=== PATIENT | male | born 1960 | race Caucasian/White ===

== ENCOUNTER 2019-10-03 15:25 | Inpatient (IN) ==
[2019-10-03] MEDS ORDERED: NS 1,000 ML IV ONE (15:51)
[2019-10-03 16:11] LABS: BASO# 0.04 X1000 (0.0-0.2); BASO% 0.6 % (0.0-0.8); EOS# 0.22 X1000 (0.0-0.7); EOS% 3.1 % (0.0-10.0); HEMATOCRIT 47.7 % (42.0-52.0); HEMOGLOBIN 15.5 g/dL (14.0-18.0); IMM GRAN# 0.02 X1000 (0.0-0.04); IMM GRAN% 0.3 % (0.0-0.5); LYMPH# 1.67 X1000 (1.2-3.4); LYMPH% 23.5 % (20.5-51.1); MCH 30.2 PG (27-31); MCHC 32.5 g/dL (33-37); MCV 92.8 FL (81-99); MONO# 0.75 X1000 (0.11-0.59); MONO% 10.6 % (1.7-9.3); MPV 9.4 FL (7.4-10.4); NEUT% 61.9 % (42.2-75.2); PLT 282 X1000 (130-400); RBC 5.14 XMIL (4.7-6.1); RDW 13.9 % (11.5-14.5)
[2019-10-03 16:24] LABS: ALBUMIN 3.9 g/dL (3.5-5.0); CALCIUM 8.6 mg/dL (8.8-10.2); POTASSIUM 3.6 mmol/L (3.5-5.1); TOTAL BILIRUBIN 0.7 mg/dL (0.20-1.00); TOTAL PROTEIN 6.6 g/dL (6.3-8.3)
[2019-10-03 16:32] LABS: URINE SOURCE CATH
[2019-10-03 16:42] LABS: URINE WBC >40 /HPF (<10)
[2019-10-03 16:43] LABS: BILIRUBIN URINE SMALL (NEGATIVE); BLOOD URINE NEGATIVE (NEGATIVE); COLOR STRAW; GLUCOSE URINE NEGATIVE (NEGATIVE); KETONE URINE NEGATIVE (NEGATIVE); PH URINE 5.5; SP GRAVITY URINE 1.023; TURBIDITY URINE HAZY (CLEAR); UR EPITHELIAL CELLS >10 /HPF (<10); URINE BACTERIA 1+ /HPF; URINE RBC <10 /HPF (<10)
[2019-10-03 16:44] LABS: LEUKOCYTES URINE NEGATIVE (NEGATIVE); NITRITE URINE NEGATIVE (NEGATIVE); PROTEIN URINE TRACE mg/dL (NEGATIVE); URINE YEAST PRESENT; UROBILINOGEN URINE 2 mg/dL (NORMAL)
[2019-10-03 16:46] LABS: UR CREAT RANDOM 542.6 mg/dL (14-26)
[2019-10-03] MEDS ORDERED: ZOFRAN IV PRN (17:27)
[2019-10-03] MEDS ORDERED: TYLENOL PO PRN (17:27)
[2019-10-03] MEDS: NS 1,000 ML IV SCH (18:34)
--- NOTE | 2019-10-03 18:35 | EKG Report ---
Test Performed on : 10/03/2019 6:00:36 PM Test Reason : GAIL Blood Pressure : / mmHG Vent. Rate : 078 BPM Atrial Rate : 078 BPM P-R Int : 214 ms QRS Dur : 108 ms QT Int : 416 ms P-R-T Axes : 042 000 019 degrees QTc Int : 474 ms Sinus rhythm. with 1st degree AV block. Low voltage QRS Nonspecific T wave abnormality Prolonged QT Abnormal ECG When compared with ECG of 26-SEP-2019 22:49, (Unconfirmed) GA interval has increased QRS duration has increased Unconfirmed Result
--- NOTE | 2019-10-03 18:50 | PROVIDER DOCUMENTATION ---
This chart was entered by Brooke Meza Scribe, acting as scribe for Rea Gutiérrez CRNP. HPI-General Adult - General Chief Complaint: Abnormal Lab[s] Stated Complaint: ABNORMAL LABS Time Seen by Provider: 10/03/19 15:48 Source: patient, family (sister), other (caregiver from [facility]) Unable to obtain history due to:: other (pt is poor historian) Allergies/Adverse Reactions: Patient Allergies Allergy/AdvReac Type Severity Reaction Status Date / Time ziprasidone [From [facility], [place]] AdvReac Severe Psychosis, Verified 05/14/17 19:26 "see x-rays in your eyes" Home Medications: Home Medication List Medication Instructions Recorded Confirmed Last Taken Type Albuterol Sulfate [Ventolin Hfa] 1 - 2 puff INH Q4H PRN PRN 09/27/19 09/27/19 Unknown History Amlodipine Besylate 1 tab PO DAILY 09/27/19 09/27/19 Unknown History Ergocalciferol (Vitamin D2) 1 cap PO DIRECTED 09/27/19 09/27/19 Unknown Hist ory [Vitamin D2] Fexofenadine [Shaila] 1 tab PO DAILY 09/27/19 09/27/19 Unknown History Fluticasone Propionate 2 spray INTRANASAL DAILY 09/27/19 09/27/19 Unknown History Furosemide 1 tab PO DAILY 09/27/19 09/27/19 Unknown History Losartan/Hctz [Hyzaar 100/12.5 mg 1 tab PO DAILY 09/27/19 09/27/19 Unknown History Tab] Meloxicam 1 tab PO DAILY 09/27/19 09/27/19 Unknown History Metformin HCl 1 tab PO BID 09/27/19 09/27/19 Unknown History Montelukast Sodium 1 tab PO DAILY 09/27/19 09/27/19 Unknown History Saxagliptin [Onglyza] 1 tab PO DAILY 09/27/19 09/27/19 Unknown History - History of Present Illness -Gen Adult Nature of Presenting Problems: 59 yowm presents to the ed via ems with c/o abnormal kidney lab results. pt had x2 bags of fluid [employer] in ed but continues to state "I don't feel good" pt is currently staying at [facility] due to SI and paranoia and believing people are out to kill him. per sister at bedside pt has not been eating well or drinking well due to believing he will be poisoned. pt sts "I feel contaminated" and "I feel like I've walked my last mile" Location of Pain/Injury: reports: other (pt sts "I just feel bad") Quality of Pain: reports: none Severity: reports: moderate Onset/Duration: reports: unsure Timing: reports: still present Context/Activities at Onset: reports: light activity Modifying Factors: improves with: nothing Associated Symptoms: reports: malaise. denies: chest pain, fever/chills, nausea, shortness of breath, vomiting Similar Symptoms Previously?: No Recently seen or treated by another doctor?: No Review of Systems - Adult - REVIEW OF SYSTEMS - ADULT Constitutional: denies: chills, fever Eyes: reports: no symptoms reported Ears, Nose, Mouth & Throat: reports: no symptoms reported Cardiovascular: denies: chest pain, palpitations Respiratory: denies: cough, shortness of breath, wheezing Gastrointestinal: denies: abdominal pain, diarrhea, vomiting Genitourinary: reports: no symptoms reported Musculoskeletal: reports: no symptoms reported Integumentary: reports: no symptoms reported Neurological: denies: dizziness/vertigo, headache/migraines Psychiatric: reports: see HPI, other (paranoid with si) Endocrine: reports: no symptoms reported Hematologic/Lymphatic: reports: no symptoms reported Allergic/Immunologic: reports: no symptoms reported All Other Systems: Reviewed and Negative Past History - Adult - PAST MEDICAL HISTORY-ADULT Review of Records: reports: Old Records Reviewed, Nursing Assessment Review, Medications Reviewed, Social history reviewed & non-contributory. Major Childhood Illnesses: reports: denies history Cardiovascular: reports: HTN Respiratory: reports: denies history Gastrointestinal: reports: GERD Genitourinary: reports: denies history Musculoskeletal: reports: denies history Neurological: reports: denies history Psychiatric: reports: depression, psychiatric problems, schizophrenia, other (paranoia) Endocrine/Immune: reports: Diabetes Diabetes Type: Type 2 Other Conditions: reports: denies history - PRIOR SURGERIES/PROCEDURES Surgical/Procedure History: reports: appendectomy - IMMUNIZATION STATUS Childhood Immunizations: See Nurse Assessment Flu Vaccine: See Nurse Assessment - FAMILY HISTORY Family History: reviewed, not pertinent - SOCIAL HISTORY Smoking: denies Substance Use: denies Living Situation: other ([facility]) Physical Exam-General - PHYSICAL EXAM-ADULT Initial Vital Signs Reviewed: Yes (noted BP-90/55 o2-90% RA) - CONSTITUTIONAL General Appearance: appears well, alert, no apparent distress, obese - EYES Eyes: PERRL/EOMI, pink conjunctivae - HEAD, EARS, NOSE, MOUTH & THROAT HENMT: negative: moist mucous membranes (dry oral with red tonue) - NECK Neck: full range of motion, normal inspection - RESPIRATORY Respiratory: chest non-tender, lungs clear, normal breath sounds - CARDIOVASCULAR Cardiovascular: normal peripheral pulses, regular rate, rhythm - CHEST (BREASTS) Chest/Breast: deferred - GASTROINTESTINAL (ABDOMEN) Abdominal Exam: normal bowel sounds, non tender, soft - GENITOURINARY Male Genitalia: deferred Rectal Exam: deferred Hemoccult Exam: deferred - LYMPHATIC Lymphatic: no adenopathy - MUSCULOSKELETAL Back Exam: no CVA tenderness, no vertebral tenderness Extremity: normal range of motion, non-tender, normal inspection - SKIN Integumentary: normal color, normal turgor, warm/dry - NEUROLOGIC Neurologic: grossly normal - PSYCHIATRIC Psych/Mental Status: paranoid (pt believes people are trying to kill him/on exam he is calm/sts "Hillary walked my last mile") Progress - PLAN OF CARE/RESULTS Progress/Plan/Lab Results: Vital Signs - 8 hr 10/03/19 15:19 Temperature 98.1 F Pulse Rate 85 Respiratory Rate 16 Blood Pressure 90/55 O2 Sat by Pulse Oximetry 90 L Result Diagrams: 10/03/19 16:00 10/03/19 16:00 - EKG 1 Time of EKG reading by physician:: 18:00 EKG Read and Signed by:: Richard Davila EKG Interpretation (*Must complete 3 of following elements*): Abnormal Rate: 78 Rhythm: sinus rhythm with 1st degree av block [place]: normal QRS: other (low voltage qrs) MT Interval: normal ST Wave: normal Comments: nonspecific T wave abnormality/prolonged QT - CONSULTS/PCP/HOSPITALIST Notification #1 *Consult/PCP/Hospitalist*: Dr. Duncan Time Discussed: 16:47 Consult Disposition: Admit Departure - Departure Date of Disposition Decision: 10/03/19 Time of Disposition Decision: 16:48 DIAGNOSIS: GAIL (acute kidney injury), Hypotension, Dehydration Disposition: ADMITTED INPATIENT 09 Certified Medical Emergency: Emergent Condition: Fair - Critical Care Note This patient required my direct & personal management of CC.: No Attestation - Physician/ MADDIE Attestation Patient care was provided by Advanced Practice Provider:: Yes Advanced Practice Provider documentation review:: The Mid-level provider documentation, treatment plan and medical decision making was reviewed by the physician who agrees with all treatment and medical decision making by the MLP. The physician spent face to face time with patient:: No Advanced Practice Provider documentation review:: Supervising physician onsite and consulted in the evaluation and care of this patient. The physician did not have a face to face encounter with the patient. This chart was documented by the indicated scribe, (Brooke Meza Scribe) and accurately reflects the services I performed and decisions made by me, Rea Gutiérrez CRNP, as attested by the provider's signature.
[2019-10-04] MEDS: NS 1,000 ML IV SCH ×4 (01:04→23:20)
[2019-10-04 06:21] LABS: HEMATOCRIT 43.9 % (42.0-52.0); HEMOGLOBIN 14.1 g/dL (14.0-18.0); MCH 29.8 PG (27-31); MCHC 32.1 g/dL (33-37); MCV 92.8 FL (81-99); MPV 9.3 FL (7.4-10.4); RBC 4.73 XMIL (4.7-6.1); RDW 13.6 % (11.5-14.5); WBC 7.95 X1000 (4.8-10.8)
[2019-10-04 06:36] LABS: ALBUMIN 3.6 g/dL (3.5-5.0); CALCIUM 8.3 mg/dL (8.8-10.2); CREATININE 2.3 mg/dL (0.7-1.2); MAGNESIUM 1.7 mg/dL (1.5-2.7); POTASSIUM 3.1 mmol/L (3.5-5.1); TOTAL BILIRUBIN 0.5 mg/dL (0.20-1.00); TOTAL PROTEIN 5.9 g/dL (6.3-8.3)
--- NOTE | 2019-10-04 08:10 | HISTORY AND PHYSICAL ---
CHIEF COMPLAINT: Abnormal labs. HISTORY OF PRESENT ILLNESS: The patient is a 67-year-old male who presented to the emergency department after having been found to have elevated serum creatinine at [facility]. He has been at [place] and has not been drinking. States that he feels contaminated. Feels like he has walked his last mile. Notes that people are out to kill him and that is the reason he is not eating or drinking. The patient is somewhat delusional. He also is confused on time. He is telling me of an event where he fell in the past and arguing with his sister that had just happened whereas the sister notes this happened 2 years ago. When asked why he is not drinking, he states because he does not want to. ALLERGIES: Katia causes psychosis; says he can "see x-rays in your eyes". MEDICATIONS: 1. Albuterol. 2. Amlodipine. 3. Vitamin D. 4. Shaila. 5. Hyzaar 100/12.5 6. [*] 7. Metformin. 8. Onglyza. PAST MEDICAL HISTORY: 1. Hypertension. 2. Hyperlipidemia. 3. Reflux [*]. REVIEW OF SYSTEMS: As noted above. Denies any fevers, chills, [*]. States that he feels bad. He did states that he has been contaminated and does not know how to decontaminate. Otherwise, denies chest pain, palpitations. FAMILY HISTORY: Noncontributory. SOCIAL HISTORY: Does not smoke or drink [*][facility]. PHYSICAL EXAMINATION: VITAL SIGNS: Temperature 98 degrees, pulse 85, respiratory rate 18, BP 92/55, saturating 100% on room air. GENERAL: The patient is awake, alert. He is lying in the bed. He is in no respiratory distress. HEENT: Normocephalic. NECK: Supple. CV: Regular rate. CHEST: Clear, nonlabored. ABDOMEN: Soft, obese, and nondistended. EXTREMITIES: Moves all extremities. NEUROLOGIC: He has no focal changes, although he is disoriented to time, and thinks that people are trying to kill him. He is paranoid. He is calm on exam. ASSESSMENT: 1. [*]around 1.5, currently 4.0. It is likely due to volume depletion, although he is taking Mobic, metformin, and hydrochlorothiazide. 2. Hypotension. 3. Dehydration. 4. Paranoid schizophrenia. 5. Diabetes. PLAN: We will admit patient to the hospital. We will follow. He is placed on intravenous fluids. Further orders as needed. cc: Toro Manning MD
[2019-10-04] MEDS ORDERED: KLOR-CON PO ONE (09:10)
--- NOTE | 2019-10-04 23:21 | PROGRESS NOTE ---
DATE: 10/04/2019 SUBJECTIVE: Patient has no new complaints. PHYSICAL EXAMINATION: Vital Signs: Reviewed. Temperature 98 degrees, pulse 80, BP 151/82. General: He is awake, alert. HEENT: Normocephalic. Neck: Supple. Cardiovascular: Regular rate. Chest: Clear. Abdomen: Soft, obese. Extremities: Moves all extremities. Neurologic: No changes. ASSESSMENT: 1. Acute renal failure, improved. Creatinine was 4.0 on admit, currently 2.3 with baseline of 1.2. 2. Hypokalemia, replaced. 3. Paranoid schizophrenia causing him to not drink. 4. Diabetes. PLAN: We will continue patient in the hospital. Continue to follow. Continue fluids today. Recheck his labs. Replace potassium. cc: Toro Manning MD
[2019-10-05 05:50] LABS: HEMATOCRIT 43.6 % (42.0-52.0); HEMOGLOBIN 13.9 g/dL (14.0-18.0); MCH 29.8 PG (27-31); MCHC 31.9 g/dL (33-37); MCV 93.6 FL (81-99); MPV 9.5 FL (7.4-10.4); RBC 4.66 XMIL (4.7-6.1); RDW 13.7 % (11.5-14.5); WBC 4.53 X1000 (4.8-10.8)
[2019-10-05 06:26] LABS: AGAP 11; ALBUMIN 3.4 g/dL (3.5-5.0); ALKALINE PHOSPHATASE 72 U/L (32-122); BUN 13 mg/dL (8-22); CALCIUM 8.3 mg/dL (8.8-10.2); CHLORIDE 110 mmol/L (98-107); COSMO 289; CREATININE 0.9 mg/dL (0.7-1.2); ESTIMATED GFR > 60; GLUCOSE 94 mg/dL (70-104); GOT 19 U/L (10-34); GPT 29 U/L (10-44); MAGNESIUM 1.4 mg/dL (1.5-2.7); POTASSIUM 3.5 mmol/L (3.5-5.1); SODIUM 145 mmol/L (136-145); TCO2 24 mmol/L (25-35); TOTAL PROTEIN 5.6 g/dL (6.3-8.3)
[2019-10-05] MEDS: NS 1,000 ML IV SCH (06:36)
[2019-10-05] MEDS ORDERED: MAGNESIUM SULFATE 2 GM/S.W.I. 2 GM/50 ML IVPB IV ONE (08:28)
[2019-10-05] MEDS ORDERED: CYMBALTA PO SCH ×2 (09:00→21:00)
[2019-10-05] MEDS ORDERED: NORVASC PO SCH (09:00)
[2019-10-05] MEDS ORDERED: KLOR-CON PO SCH (09:00)
[2019-10-05] MEDS ORDERED: VITAMIN D PO SCH (09:00)
[2019-10-05 11:39] VITALS: BP 123/74
--- NOTE | 2019-10-05 12:47 | DISCHARGE SUMMARY ---
ADMISSION DATE: 10/03/2019 DISCHARGE DATE: 10/05/2019 ADMISSION DIAGNOSES: 1. Acute kidney injury secondary to volume depletion with possible acute tubular necrosis. 2. Hypotension. 3. Dehydration. 4. Paranoid schizophrenia. 5. Diabetes. DISCHARGE DIAGNOSES: 1. Acute kidney injury, improving. 2. Hypokalemia. 3. Paranoid schizophrenia. 4. Diabetes. CONSULTATIONS: Tanya Burris. SURGERIES AND PROCEDURES: None. HOSPITAL COURSE: Mr. Carlos Alberto Beckman is a 59-year-old, male with a medical history of paranoid schizophrenia. He came from [facility] as he had been complaining of people trying to poison him, causing him not to eat or drink, which caused him to get dehydrated. This dehydration along with taking medications that can be nephrotoxic caused him to have acute kidney injury. Since admission, we have been giving him IV fluids and he has had some resolution or improvement of his kidney failure, and he has had improvement in his diet intake. DISCHARGE VITAL SIGNS: Temperature 98.6 degrees, heart rate 73, respiratory rate 18, blood pressure 123/74, O2 saturation 94% on room air. DISCHARGE LAB DATA: White blood cells 4000, hemoglobin 13, hematocrit 43, platelet count 231,000. Sodium 145, potassium 3.5, BUN 13, creatinine 0.9, glucose 94, magnesium is 1.4, calcium 8.3. Bilirubin 0.50, AST 19, ALT 29, albumin 3.4. TSH was 0.14. Urine culture negative. PERTINENT IMAGING: None. He had an EKG, sinus rhythm, first-degree AV block, rate was 78, QTc was 474. DISCHARGE MEDICATIONS: No new discharge medications. 1. Amlodipine besylate 5 mg p.o. daily. 2. Benztropine mesylate 1 mg intramuscular at night p.r.n. 3. Clozapine 50 mg p.o. nightly. 4. Depakote 2000 mg p.o. nightly. 5. Duloxetine 60 mg in the morning and 30 mg at night. 6. Potassium 20 mEq p.o. daily. 7. Vitamin D2 with 50,000 units p.o. daily. PHYSICIAN FOLLOWUPS: None. He will go to [facility]. DISCHARGE INSTRUCTIONS: If signs and symptoms of dehydration reoccur, seek medical attention. Probably will need to have kidney function rechecked within the week. DISCHARGE DISPOSITION: [facility]. Dictated by REINA Bryant for Toro Manning MD cc: REINA Bryant MD
[2019-10-05] MEDS ORDERED: COGENTIN PO SCH (21:00)
[2019-10-05] MEDS ORDERED: CLOZARIL PO SCH (21:00)
[2019-10-05] MEDS ORDERED: DEPAKOTE PO SCH (21:00)
--- NOTE | 2019-10-05 21:46 | DISCHARGE SUMMARY ---
ADMISSION DATE: 10/03/2019 DISCHARGE DATE: 10/05/2019 ADDENDUM: Patient seen and examined by myself. Full note dictated and discussed with nurse practitioner. On discharge, patient is awake, alert, currently in no distress. Unfortunately, he is still very paranoid. Still having difficulty drinking, although currently his acute renal failure has completely resolved. Unfortunately, I expect if Psychiatry is unable to change his paranoia, then he will continue to not drink, and unfortunately, obviously will get dehydrated again. He will be transitioned back to [facility]. cc: Toro Manning MD
== END 2019-10-05 15:01 | DRG 683 ==
LOC: P.ED 15:25 → P.MEDSURG 15:26
PROVIDERS: ATTEND Family Medicine